=== PATIENT | male | born 1950 | race African-American/Black ===

== ENCOUNTER 2022-02-21 06:00 | Emergency (ER) | payer OTHER ==
[~2022-02-21] VITALS: Ht 180.3 cm; Wt 81.0 kg
[2022-02-21] MEDS ORDERED: ACETAMINOPHEN 325MG TABLET PO ONE (06:30)
[2022-02-21] MEDS ORDERED: TOPUD PO (07:01)
[2022-02-21 07:14] VITALS: BP 155/79
== END 2022-02-21 07:16 | disposition home or self-care (01) ==
LOC: ER 06:00
DX: M25.551 Pain in right hip (principal); Z98.890 Other specified postprocedural states; W01.0XXA Fall on same level from slipping, tripping and stumbling without subsequent striking against object, initial encounter; Y93.89 Activity, other specified; Y92.89 Other specified places as the place of occurrence of the external cause; Y99.8 Other external cause status
CPT/HCPCS: 73501; 99283

== ENCOUNTER 2022-04-21 03:28 | Emergency (ER) | payer OTHER ==
[~2022-04-21] VITALS: Ht 177.8 cm; Wt 85.0 kg
[~2022-04-21 03:28] MED LIST: TOPUD PO
[2022-04-21 04:00] VITALS: BP 152/65
== END 2022-04-21 06:25 | disposition left against medical advice (07) ==
LOC: ER 03:28
DX: Z53.21 Procedure and treatment not carried out due to patient leaving prior to being seen by health care provider (principal)